=== PATIENT | male | born 1995 | race Hispanic/Latino ===

== ENCOUNTER 2019-10-19 04:11 | Emergency (ER) | payer OTHER ==
[2019-10-19] MEDS ORDERED: ONDANSETRON ODT 4 MG TAB ONE (04:33)
[2019-10-19] MEDS ORDERED: ACETAMINOPHEN 325 MG TAB ONE (04:43)
== END 2019-10-19 06:13 | disposition home or self-care (01) ==
LOC: EDH 04:11
DX: S02.2XXA Fracture of nasal bones, initial encounter for closed fracture (principal); R04.0 Epistaxis; Z72.0 Tobacco use; Y04.0XXA Assault by unarmed brawl or fight, initial encounter; Y93.89 Activity, other specified; Y92.89 Other specified places as the place of occurrence of the external cause; Y99.8 Other external cause status
CPT/HCPCS: 70450; 70486